=== PATIENT | female | born 1965 | race African-American/Black ===

== ENCOUNTER 2021-09-28 15:32 | Outpatient (REF) | payer MEDICARE, OTHER, SELFPAY ==
[2021-09-28 16:11] LABS: Estimated Average Glucose 88 mg/dL; Hemoglobin A1c % 4.7 %
[2021-09-28 16:27] LABS: Alanine Aminotransferase 32 U/L (0-31); Albumin Level 4.1 g/dL (3.5-5.0); Alkaline Phosphatase 92 U/L (39-117); Anion Gap 11 (12-20); Aspartate Amino Transferase 22 U/L (5-31); Bilirubin Total 0.4 mg/dL (0.0-1.0); Blood Urea Nitrogen 12 mg/dL (9-16); Calcium 9.3 mg/dL (8.4-10.2); Carbon Dioxide 27 mmol/L (22-29); Chloride 110 mmol/L (96-108); Estimated Glomerular Filt Rate > 60; Glucose Random 110 mg/dL (60-115); Potassium 3.7 mmol/L (3.3-5.1); Sodium 144 mmol/L (135-145); Total Protein 7.3 g/dL (6.5-8.0)
[2021-09-28 16:48] LABS: Free T4 (Free Thyroxine) 0.82 ng/dL (0.71-1.85)
[2021-09-28 17:01] LABS: Folate 5.3 ng/mL (> or = 4.0); Vitamin B12 527 pg/mL (200-900)
== END 2021-09-28 15:33 | disposition home or self-care (01) ==
LOC: HO.LAB 15:32
PROVIDERS: Visit Provider Psychiatry & Neurology Psychiatry
DX: F33.41 Major depressive disorder, recurrent, in partial remission (principal)
CPT/HCPCS: 36415; 80053; 82607; 82746; 83036; 84439; 84443

== ENCOUNTER → 2022-07-23 12:55 | Outpatient (BNVA) | payer MEDICARE, OTHER, SELFPAY | PROVIDERS: Visit Provider Psychiatry & Neurology Psychiatry | DX: F43.12 Post-traumatic stress disorder, chronic (principal); F32.4 Major depressive disorder, single episode, in partial remission | CPT/HCPCS: Q3014 ==

== ENCOUNTER → 2022-11-19 14:09 | Outpatient (BNVA) | payer MEDICARE, OTHER, SELFPAY | PROVIDERS: PCP Nurse Practitioner Family; Visit Provider Psychiatry & Neurology Psychiatry | DX: F43.12 Post-traumatic stress disorder, chronic (principal); F32.4 Major depressive disorder, single episode, in partial remission; G43.909 Migraine, unspecified, not intractable, without status migrainosus; G47.33 Obstructive sleep apnea (adult) (pediatric) | CPT/HCPCS: Q3014 ==

== ENCOUNTER → 2023-03-18 14:34 | Outpatient (BNVA) | payer MEDICARE, OTHER, SELFPAY | PROVIDERS: PCP Nurse Practitioner Family; Visit Provider Psychiatry & Neurology Psychiatry | DX: F43.12 Post-traumatic stress disorder, chronic (principal); G47.33 Obstructive sleep apnea (adult) (pediatric) | CPT/HCPCS: Q3014 ==

== ENCOUNTER 2023-06-07 11:50 | Outpatient (AMB) | payer MEDICARE, OTHER, SELFPAY ==
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
== END 2023-06-07 12:27 | disposition home or self-care (01) ==
LOC: HO.HOP 11:50
PROVIDERS: PCP Nurse Practitioner Family; Visit Provider Psychiatry & Neurology Psychiatry
DX: F43.12 Post-traumatic stress disorder, chronic (principal); F32.4 Major depressive disorder, single episode, in partial remission; G47.33 Obstructive sleep apnea (adult) (pediatric); E66.9 Obesity, unspecified
CPT/HCPCS: 90833; 99213

== ENCOUNTER → 2023-06-07 11:50 | Outpatient (BNVA) | payer MEDICARE, OTHER, SELFPAY | PROVIDERS: PCP Nurse Practitioner Family; Visit Provider Psychiatry & Neurology Psychiatry | DX: F43.12 Post-traumatic stress disorder, chronic (principal); F32.4 Major depressive disorder, single episode, in partial remission; G47.33 Obstructive sleep apnea (adult) (pediatric); E66.9 Obesity, unspecified | CPT/HCPCS: 90833; 99212 ==

== ENCOUNTER 2023-09-03 18:06 | Emergency (ER) | payer MEDICARE, OTHER, SELFPAY ==
[2023-09-03 18:34] VITALS: BP 155/89; PULSE 91; RESP 18; TEMP 37.1; O2SAT 96; BMI 49.8
--- NOTE | 2023-09-03 19:00 | ED.URI ---
HPI - URI/Sore Throat General Chief Complaint: Upper Respiratory Symptoms Stated Complaint: Flu like symptoms Time Seen by Provider: 09/03/23 20:08 Source: patient Mode of arrival: ambulatory Limitations: no limitations History of Present Illness HPI Narrative: Patient is a 58-year-old female who presents to the emergency department for evaluation of URI symptoms; chills, sore throat, nonproductive cough, headache, nausea, reports grandson has recently tested positive for RSV. She has been experiencing ongoing nausea for the past 4 months secondary to vertigo, no acute changes in this, alleviated with Zofran and meclizine as prescribed by her primary care provider. Denies fever, headache, neck pain, neck stiffness, dizziness, lightheadedness, vision changes, chest pain, shortness of breath, vomiting, abdominal pain, numbness or tingling of the extremities, weakness. Related Data Home Medications Medication Instructions Recorded Confirmed albuterol sulfate 90 mcg/actuation 0 mcg inhalation 07/23/22 03/18/23 aerosol inhaler Previous Rx's Medication Instructions Recorded lamotrigine 200 mg tablet 200 mg PO DAILY #90 tabs 03/18/23 oxcarbazepine 600 mg tablet 600 mg PO BEDTIME 3 months #90 tabs 03/18/23 lorazepam 1 mg tablet 1 - 2 mg (1 - 2 x 1 mg) PO BEDTIME 08/06/23 PRN insomnia #60 tabs prazosin 1 mg capsule 1 mg PO BID PRN ANXIETY/INSOMNIA 09/02/23 #180 caps Allergies Allergy/AdvReac Type Severity Reaction Status Date / Time acetaminophen [From TYLENOL] Allergy Unknown SEE Unverified 07/14/20 18:21 LINES/FLASHING Review of Systems Review of Systems: Constitutional: Positive fever. Positive chills. No weakness. Positive fatigue. ENT/ Mouth: No Ear Pain, positive Nasal Congestion, positive sore throat, No Rhinorrhea, No Swallowing Difficulty Skin: No rash or itching. Cardiovascular: No chest pain. No palpitations. Respiratory: No shortness of breath. Positive cough. No sputum production. Gastrointestinal: No nausea. No vomiting. No diarrhea. No abdominal pain. Genitourinary: No burning micturition. No urinary frequency. Neurologic: No headache. No dizziness. No syncope. No numbness or tingling in the extremities. Musculoskeletal: No muscle pain. No back pain. No joint pain or stiffness. Yes all other systems are reviewed and are negative PMFSH Past Medical History Attestation statement: The following information was validated with the patient. Source: old records reviewed Medical History ADRIAN (obstructive sleep apnea) Chronic post-traumatic stress disorder (PTSD) Obesity (BMI 30-39.9) Migraine Family History Family History (Updated 07/25/22 @ 09:19 by Surendra Dueñas MD) Other Bipolar disorder Post traumatic stress disorder (PTSD) Physical Exam Vital Signs: Vital Signs: Last Vital Signs Temp 98.7 F 09/03/23 18:34 Pulse 91 09/03/23 18:34 Resp 18 09/03/23 18:34 BP 155/89 H 09/03/23 18:34 Pulse Ox 96 09/03/23 18:34 O2 Del Method Room Air 09/03/23 18:34 BMI result Body Mass Index 49.8 Appearance: Alert.?Oriented to person, place and time. No acute distress.?Normal affect. Eyes: Pupils equal, round and reactive to light.? ENT: TM normal bilaterally. Pharynx normal.?? Neck: Normal inspection.? Neck supple.??No cervical adenopathy CVS: Heart sounds normal. Normal heart rate and rhythm.? Pulses normal.?? Respiratory: No respiratory distress.? Lung sounds clear to auscultation bilaterally?? Abdomen: Soft and non-tender. Normoactive bowel sounds. Skin: Skin warm and dry.? Normal skin color.? ? Extremities: No lower extremity edema.? Neuro: Moves all extremities spontaneously. Sensation intact bilaterally. No motor deficits. Ambulates with normal steady gait. Medical Decision Making Medical Decision Making MDM Narrative: Patient is a 58-year-old female with no reported past medical history, presenting for evaluation of upper respiratory symptoms. COVID-19/influenza/RSV/strep a testing are all negative. At this time history and physical exam not consistent with ACS/PE/pneumonia, no evidence of peritonsillar retropharyngeal abscess. Well-appearing, nontoxic, afebrile, no tachycardia or tachypnea/hypoxia. Speaking clear full sentences, ambulatory with steady gait. Discussed conservative treatment including rest, hydration, Tylenol/ibuprofen as needed for fever and body aches, saline nasal spray, humidifier, jpwk-phu-srtaeyr cold medication. Advised to follow-up with primary care provider as needed, discussed reasons to return back to the emergency department. All questions were answered. Patient discharged home in stable condition. Differential Diagnosis Differential Diagnoses: The differential diagnosis associated with the presentation includes (As noted above) Lab Data MDM Lab Attestation statement: I reviewed the patient's lab results. (As noted above) Labs: Lab Results 09/03/23 09/03/23 Range/Units 19:02 19:12 Urine Color Yellow Urine Appearance Clear Urine pH 6.0 (5.0-9.0) Ur Specific [place] 1.015 (1.005-1.025) Urine Protein Negative (Neg-Trace) mg/dL Urine Glucose (UA) Negative (Negative) mg/dL Urine Ketones Negative (Negative) mg/dL Urine Blood Negative (Negative) Urine Nitrite Negative (Negative) Ur Leukocyte Esterase Negative (Negative) Influenza Type A (PCR) NEGATIVE (Negative) Influenza Type B (PCR) NEGATIVE (Negative) RSV RNA Qual (PCR) NEGATIVE (Negative) SARS-CoV-2 RNA (RT-PCR) NEGATIVE (Negative) S. pyogenes GrpA CLARA Negative (Negative) External Record Review External record reviewed: Prior outpatient labs Prescription Management I considered prescription management with: Antibiotic (Suspect viral etiology) Discharge Plan Discharge Clinical Impression: Upper respiratory infection Patient Disposition: Home, Self-Care Instructions: Upper Respiratory Infection (ED) Additional Instructions: Be sure to rest, stay well hydrated drinking plenty of fluids, eat small frequent meals. Tylenol/ibuprofen can be used as needed for fever/pain. Umto-mvc-zogiwzv cold medications may be helpful as well for symptoms. Saline nasal spray, humidifier may be helpful for nasal congestion. You may return to the emergency department with any new or worsening symptoms or concerns. Follow-up with your primary care provider as needed. Should remain out of school/ work until symptoms have resolved and have been without a fever for 24 hours without the use of Tylenol or ibuprofen. Prescriptions: No Action lorazepam 1 mg tablet 1 - 2 mg PO BEDTIME PRN (Reason: insomnia) Qty: 60 2RF prazosin 1 mg capsule 1 mg PO BID PRN (Reason: ANXIETY/INSOMNIA) Qty: 180 1RF albuterol sulfate 90 mcg/actuation HFA aerosol inhaler 0 mcg inhalation oxcarbazepine 600 mg tablet 600 mg PO BEDTIME 90 Days Qty: 90 1RF lamotrigine 200 mg tablet 200 mg PO DAILY Qty: 90 1RF Referrals: ED Physician,Generic [Physician] -
[2023-09-03 19:23] LABS: Appearance Urine Clear; Color Urine Yellow; Glucose Urine UA Negative (Negative); Leukocyte Esterase Urine Negative (Negative); Nitrite Urine Negative (Negative); Specific Gravity - Urine 1.015 (1.005-1.025); Urine Blood Negative (Negative); Urine Ketones Negative (Negative); Urine Protein Negative (Neg-Trace)
[2023-09-03 19:26] LABS: IDNOW Serial# 08D9AD1C; Strep A Nucleic Acid Negative (Negative)
[2023-09-03 19:44] LABS: Influenza A PCR NEGATIVE (Negative); Influenza B PCR NEGATIVE (Negative); Resp Syncy Virus RNA Qual PCR NEGATIVE (Negative); SARS COV2 PCR INHOUSE NEGATIVE (Negative)
[2023-09-03 20:05] VITALS: BP 118/75; PULSE 90; RESP 18; TEMP 36.9; O2SAT 98
== END 2023-09-03 21:58 | disposition home or self-care (01) ==
PROVIDERS: Emergency Provider Emergency Medicine
DX: J06.9 Acute upper respiratory infection, unspecified (principal); R05.9 Cough, unspecified; J02.9 Acute pharyngitis, unspecified; R51.9 Headache, unspecified; Z20.822 Contact with and (suspected) exposure to COVID-19; Z20.828 Contact with and (suspected) exposure to other viral communicable diseases
CPT/HCPCS: 0241U; 81003; 87651; 99282; 99283

== ENCOUNTER 2023-09-30 16:50 | Outpatient (AMB) | payer MEDICARE, OTHER, SELFPAY ==
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
== END 2023-09-30 16:50 | disposition home or self-care (01) ==
LOC: HO.HOP 16:50
PROVIDERS: Visit Provider Psychiatry & Neurology Psychiatry
DX: F33.41 Major depressive disorder, recurrent, in partial remission (principal); F43.12 Post-traumatic stress disorder, chronic; G47.33 Obstructive sleep apnea (adult) (pediatric); R42 Dizziness and giddiness
CPT/HCPCS: 99214

== ENCOUNTER → 2023-09-30 16:50 | Outpatient (BNVA) | payer MEDICARE, OTHER, SELFPAY | PROVIDERS: Visit Provider Psychiatry & Neurology Psychiatry ==

== ENCOUNTER → 2024-01-30 12:00 | Outpatient (BNVA) | payer MEDICARE, OTHER, SELFPAY | PROVIDERS: Visit Provider Psychiatry & Neurology Psychiatry ==

== ENCOUNTER → 2024-01-31 16:59 | Outpatient (BNVA) | payer MEDICARE, OTHER, SELFPAY | PROVIDERS: Visit Provider Psychiatry & Neurology Psychiatry ==

== ENCOUNTER 2024-04-21 17:22 | Outpatient (AMB) | payer MEDICARE, OTHER, SELFPAY ==
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
== END 2024-04-21 17:22 | disposition home or self-care (01) ==
LOC: HO.HOP 17:22
PROVIDERS: Visit Provider Psychiatry & Neurology Psychiatry
DX: F32.4 Major depressive disorder, single episode, in partial remission (principal); F43.12 Post-traumatic stress disorder, chronic
CPT/HCPCS: 90833; 99213

== ENCOUNTER → 2024-04-21 17:22 | Outpatient (BNVA) | payer MEDICARE, OTHER, SELFPAY | PROVIDERS: Visit Provider Psychiatry & Neurology Psychiatry | DX: F43.12 Post-traumatic stress disorder, chronic (principal); F32.4 Major depressive disorder, single episode, in partial remission ==

== ENCOUNTER 2024-07-28 14:08 | Outpatient (AMB) | payer MEDICARE, OTHER, SELFPAY ==
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
== END 2024-07-28 14:43 | disposition home or self-care (01) ==
LOC: HO.HOP 14:08
PROVIDERS: Visit Provider Psychiatry & Neurology Psychiatry
DX: F43.12 Post-traumatic stress disorder, chronic (principal); F32.4 Major depressive disorder, single episode, in partial remission
CPT/HCPCS: 90833; 99213

== ENCOUNTER → 2024-07-28 14:08 | Outpatient (BNVA) | payer MEDICARE, OTHER, SELFPAY | PROVIDERS: Visit Provider Psychiatry & Neurology Psychiatry | DX: F43.12 Post-traumatic stress disorder, chronic (principal); F32.4 Major depressive disorder, single episode, in partial remission; Z71.89 Other specified counseling | CPT/HCPCS: 99212 ==

== ENCOUNTER 2024-08-24 14:41 | Outpatient (AMB) | payer MEDICARE, OTHER, SELFPAY ==
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
== END 2024-08-24 14:41 | disposition home or self-care (01) ==
LOC: HO.HOP 14:41
PROVIDERS: Visit Provider Psychiatry & Neurology Psychiatry
DX: F32.4 Major depressive disorder, single episode, in partial remission (principal); F43.12 Post-traumatic stress disorder, chronic; G47.33 Obstructive sleep apnea (adult) (pediatric)
CPT/HCPCS: 99214

== ENCOUNTER → 2024-08-24 14:41 | Outpatient (BNVA) | payer MEDICARE, OTHER, SELFPAY | PROVIDERS: Visit Provider Psychiatry & Neurology Psychiatry ==

== ENCOUNTER 2024-11-02 18:20 | Outpatient (AMB) | payer MEDICARE, OTHER, SELFPAY ==
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
== END 2024-11-02 18:23 | disposition home or self-care (01) ==
LOC: HO.HOP 18:20
PROVIDERS: Visit Provider Psychiatry & Neurology Psychiatry
DX: F43.12 Post-traumatic stress disorder, chronic (principal)
CPT/HCPCS: 99212

== ENCOUNTER → 2024-11-02 18:20 | Outpatient (BNVA) | payer MEDICARE, OTHER, SELFPAY | PROVIDERS: Visit Provider Psychiatry & Neurology Psychiatry ==

== ENCOUNTER 2025-01-28 17:24 | Outpatient (AMB) | payer MEDICARE, OTHER, SELFPAY ==
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
--- OUTSIDE RECORDS SUMMARY | 2025-01-28 17:26 | XMS_ITS | Continuity of Care Document ---
Author Organization [facility] ter Address [address] [place] [id number]- Care Team Providers Care Chief Of Police Name Role Phone Chloe ESTRADA, Margareth Primary Care Physician [phone] Encounter [facility] [place] Date(s): 10/28/24 - 01/25/[address] [id number] Discharge Disposition: A-D/C Home Attending Physician: Erick Rock MD Admitting Physician: Erick Rock MD Referring Physician: Erick Rock MD Encounter Type: Disch Recurring OP Allergies, Adverse Reactions, Alerts Substance Criticality Severity Reaction Reaction Severity Status Tylenol 1 vision change Resolv ed Dust 2 Active 1Currently taking Tylenol at home for fever with Covid, no symptoms/tolerating well. 2dust mites Immunizations Given and Recorded Vaccine Date Status Refusal Reason influenza virus vaccine, inactivated 09/16/23 Blayne rded influenza virus vaccine, inactivated 1 09/26/22 Gi jules influenza virus vaccine, inactivated 10/30/21 Blayne rded influenza virus vaccine, inactivated 07/06/20 Blayne rded influenza virus vaccine, inactivated 2 09/10/19 Gi jules influenza virus vaccine, inactivated 3 08/27/18 Gi jules influenza virus vaccine, inactivated 4 07/17/17 Gi jules influenza virus vaccine, inactivated 5 3/20/17 Gi jules influenza virus vaccine, inactivated 6 01/13/16 Gi jules influenza virus vaccine, inactivated 09/11/11 Give n influenza virus vaccine, inactivated 7 11/01/09 Gi jules SARS-CoV-2(COVID-19)mRNA-LNP vac([id number]) 08/02/23 Recorded [id number] bivalent booster vax 10/04/22 Recorded SARS-CoV-2 (COVID-19) mRNA-1273 vaccine 09/08/21 R ecorded SARS-CoV-2 (COVID-19) mRNA-1273 vaccine 12/23/20 R ecorded SARS-CoV-2 (COVID-19) mRNA-1273 vaccine 11/18/20 R ecorded Zostavax (oldterm) 8 04/18/18 Given tetanus/diphtheria/pertussis, acel(Tdap) 9 04/18/18 Given pneumococcal 23-valent vaccine 01/14/17 Given Tet/Diphth/Acel, Pertussis (oldterm) 09/24/08 Give n Influenza Virus Vaccine (oldterm) 10 08/14/08 Give n diphtheria-tetanus toxoids (DT) 11 07/11/06 Given 1Result Comment: [facility] [id number] 2Result Comment: [facility] [id number] 3Admin Note: [facility] 4Result Comment: [facility]#[id number] 5Admin Note: Declined 6Admin Note: Declined 7Admin Note: vis sheet 06/07/09 given 8Admin Note: Declined 9Result Comment: [id number] 10Admin Note: [facility] 04/26/06 MANUFACTURED [employer] 11Admin Note: declined Medications aspirin 81 mg oral delayed release tablet 81 mg, 1, tablet, By Mouth, Daily, # 90 tablet, Refills 3, Tot. Refills 3, Maintenance, 04/10/24 3:05:00 PM EDT, Route to Pharmacy Electronically, [facility]/pharmacy #[id number], Partial fill upon patient requestif the prescription is for a schedule II opioid drug., 159, cm, 03/20/24 15:37:00 EDT, Height, 121.82, kg, 03/12/24 11:07:00 EDT, Dry Weight Start Date: 04/10/24 Status: Ordered Quantity: 90.0 Unit: tablet Repeat number: 4 atorvastatin 40 mg oral tablet 1 tablet, By Mouth, Daily at bedtime, # 90 tablet, 1 Refills, Maintenance, 10/08/24 2:22:00 PM EST,[facility] #[id number], 160, cm, 07/01/24 7:08:00 EDT, Height, 121.2, kg, 06/30/24 7:54:00 EDT, Dry Weight Start Date: 10/08/24 Status: Ordered Quantity: 90.0 Unit: tablet Repeat number: 2 Blood Pressure Monitor Blood Pressure Monitor, See Instructions, # 1 each, Refills 0, Tot. Refills 0, Maintenance, Use to monitor blood pressure DX: Hypertension, 07/21/24 8:30:00 AM EDT, Supply Start Date: 07/21/24 Status: Ordered Quantity: 1.0 Unit: each Repeat number: 1 Indication: Essential (primary) hypertension Cane See Instructions, # 1 each, Maintenance, DX Difficulty ambulating use as directed, 09/27/23 9:56:00 AM EST, Supply Start Date: 09/27/23 Status: Ordered Quantity: 1.0 Unit: each Repeat number: 1 Indication: Unspecified abnormalities of gait and mobility COVID-19 Test Kit COVID-19 Test Kit, See Instructions, # 6 each, Refills 0, Tot. Refills 0, Maintenance, Use as directed, 11/20/23 12:26:00 PM EST, Supply, 159, cm, 11/19/23 10:14:00 EST, Height Start Date: 11/20/23 Status: Ordered Quantity: 6.0 Unit: each Repeat number: 1 Indication: Acute upper respiratory infection, unspecified CPAP Equipment See Instructions, # 1 each, Refills 12, Tot. Refills 12, Maintenance, DX. SLEEP APNEA G47.30 HEAD GEAR TUBING MASK FILTERS WATER CHAMBER LIFTIME USE NIGHTLY IMPROVE SA, 04/22/19 10:31:03 AM EDT, Compound Start Date: 04/22/19 Status: Ordered Quantity: 1.0 Unit: each Repeat number: 13 lamotrigine 100 mg oral tablet 100 mg, 1, tablet, By Mouth, 2 times a day, # 60 tablet, Refills 5, Maintenance, 07/01/24 9:36:00 AM EDT, Partial fill upon patient request if the prescription is for a schedule II opioid drug. Start Date: 07/01/24 Status: Ordered Quantity: 60.0 Unit: tablet Repeat number: 1 OXcarbazepine 300 mg oral tablet 300 mg, 1, tablet, By Mouth, Daily at bedtime, Refills 0, Maintenance, 05/03/22 9:18:00 AM EDT, Partial fill upon patient request if the prescription is for a schedule II opioid drug. Start Date: 05/03/22 Status: Ordered Repeat number: 1 prazosin 1 mg oral capsule Refills 0, Maintenance, 01/01/22 9:04:00 AM EST, Partial fill upon patient request if the prescription is for a schedule II opioid drug. Start Date: 01/01/22 Status: Ordered Repeat number: 1 Ventolin HFA 108 mcg/inh inhalation aerosol with adapter 2 puffs, Inhalation, Every 4 hours, PRN for wheezing, DX. ASTHMA J45.909, # 1 each, 2 Refills, Maintenance, 03/25/24 12:42:00 PM EDT, Aerosol, [id number], 159, cm, 03/20/24 15:37:00 EDT, Height, 121.82, kg, 03/12/24 11:07:00 EDT, Dry Weight Start Date: 03/25/24 Stop Date: 06/23/24 Status: Ordered Quantity: 1.0 Unit: each Repeat number: 3 Indication: Unspecified asthma, uncomplicated Problem List Condition Confirmation Course Effective Dates Status Health St atus Informant Allergic rhinitis Confirmed Active Asthma Confirmed Stable Active Lumbar degenerative disc disease Confirmed Active History of CVA in adulthood Confirmed Active Iron deficiency anemia Confirmed Active Migraine Confirmed Active Anxiety and depression Confirmed Active Severe obesity Confirmed Active Sleep apnea Confirmed Active Tubular adenoma of colon Confirmed 12/25/12 Active Vitamin D deficiency Confirmed Active Social History Social History Type Response Smoking Status Never (less than 100 in lifetime) entered on: 03/20/19 Sex Sex Representation Female (finding) Note * Event Display: Cardiac Rehab Telemetry Report Authored Date: * Event Display: Cardiac Rehab Telemetry Report Authored Date: * Event Display: Cardiac Rehab Telemetry Report Authored Date: Patient Care team information Care Team Personnel Name: Pranay HOLCOMB, Sirisha Rey Position: [facility] RN Member Role: Primary Care Nurse Name: Margareth Corona NP Position: [facility] PCO Associate Professional Member Role: PCP Address: [address] [place] [address] Telecom: Name: Mike Key RN Position: [facility] RN Member Role: Primary Care Nurse Name: Alicia Delong RN Position: [facility] RN Member Role: Primary Care Nurse Care Team Related Persons Name: SONAL SANTA Name: RAMONA JI Name: GEOFFREY SILVER Insurance Providers Guarantor name: ANGEL GARRISON Health Plan Information #: 1 Payer: MEDICARE PART B OUTPT Member Number: [id number] Policy Number: JOHN Group Number: JOHN Health Plan Information #: 2 Payer: [place] [employer] Member Number: [id number] Policy Number: NA Group Number: [id number]
== END 2025-01-28 17:25 | disposition home or self-care (01) ==
LOC: HO.HOP 17:24
PROVIDERS: Visit Provider Psychiatry & Neurology Psychiatry
DX: F43.12 Post-traumatic stress disorder, chronic (principal); F32.4 Major depressive disorder, single episode, in partial remission
CPT/HCPCS: 99214

== ENCOUNTER → 2025-01-28 17:24 | Outpatient (BNVA) | payer MEDICARE, OTHER, SELFPAY | PROVIDERS: Visit Provider Psychiatry & Neurology Psychiatry | DX: F43.12 Post-traumatic stress disorder, chronic (principal); F32.4 Major depressive disorder, single episode, in partial remission | CPT/HCPCS: 99212 ==

== ENCOUNTER 2025-04-26 10:56 | Outpatient (AMB) | payer MEDICARE, OTHER, SELFPAY ==
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
--- OUTSIDE RECORDS SUMMARY | 2025-04-26 11:47 | XMS_ITS | Patient Health Record ---
Author Organization [facility] Tamir jona [place] Address [address] [facility] [place] [address] Care Team Providers Care Lead Programmer Name Role Phone Mina GONZALES, Orion Primary Care Provider Chan Brock Unavailable [phone] Allergies Allergen (clinical drug ingredient) Drug/Non Drug Allergy documented on EMR Reaction Allergy Type Onset Date Status Information temporarily unavailable Chocolate Unknown Drug Allergy Active Information temporarily unavailable Emprin Unknown Drug Allergy Inactive Information temporarily unavailable Tylenol Unknown Drug Allergy Active Reason For Referral No Information Medications Medication SIG (Take, Route, Frequency, Duration) Notes Start Date End Date Status Physical Therapy . . . 2-3x/week; Durat ion: 3-4 weeks 08/13/2018 Active Metoprolol Succinate Not-Taking lamoTRIgine 200 MG 1 tablet Orally Twice a day Active LORazepam 1 MG 1 tablet Orally Twice a day Active Effexor Not-Taking Ibuprofen prn Active Valtrex PRN Not-Taking Social History Tobacco Use: Social History Observation Description Date Details (start date - stop date) Never Smoker NA - NA Tobacco Use/Smoking Question Answer Notes Are you a: nonsmoker Additional Findings: Tobacco Non-User Current no n-smoker Alcohol Screen Question Answer Notes Did you have a drink containing alcohol in the p ast year? No Points 0 Interpretation Negative Tobacco use other than smoking: Question Answer Notes Are you an other tobacco user? No Plan Of Treatment Pending Test Test Name Order Date X ray : Foot, left 3V 09/02/2012 X ray : Foot, left 3V 03/12/2018 X ray : Foot, right 3V 03/12/2018 X ray : Foot, right 3V 09/02/2012 Insurance Providers Payer Name Payer Address Payer Phone Subscriber Number Group Number Insured Name Patient Relationship to Insured Coverage Start Date Coverage End Date Medicare [employer] [address] [place] [address] [id number] Sarah John Self - patient is the insured 5 [facility] [address] [place] [id number] Sarah John Self - patient is the insured Medical (General) History Medical History History ICD Code psychiatric disorder neuropathy headaches/migraines gall bladder problems depression chicken pox cataracts back, hip, knee pain asthma Anxiety disorder sciatica High blood pressure Surgical History Surgery Date(Month/Year) section 09/29/1999 cholecystectomy 1999 elbow surgery 2009
== END 2025-04-26 11:15 | disposition home or self-care (01) ==
PROVIDERS: Visit Provider Psychiatry & Neurology Psychiatry
DX: F43.12 Post-traumatic stress disorder, chronic (principal); F32.4 Major depressive disorder, single episode, in partial remission
CPT/HCPCS: 99214

== ENCOUNTER → 2025-04-26 10:56 | Outpatient (BNVA) | payer MEDICARE, OTHER, SELFPAY | PROVIDERS: Visit Provider Psychiatry & Neurology Psychiatry | DX: F43.12 Post-traumatic stress disorder, chronic (principal); F32.4 Major depressive disorder, single episode, in partial remission | CPT/HCPCS: 99212 ==

== ENCOUNTER 2025-07-05 11:05 | Outpatient (AMB) | payer MEDICARE, OTHER, SELFPAY ==
--- OUTSIDE RECORDS SUMMARY | 2025-07-02 23:59 | XMS_ITS | Continuity of Care Document ---
Author Organization [facility] Adult Address [address] [place] [address]- Care Team Providers Care Claims Assistant Name Role Phone Margareth Corona NP Primary Care Physician [phone] Encounter [facility] Date(s): 06/02/25 - 07/02/25 [facility] [address] [place] [id number] Encounter Type: Triage Allergies, Adverse Reactions, Alerts Substance Criticality Severity [...] Gi jules influenza virus vaccine, inactivated 5 01/14/17 Gi jules influenza virus vaccine, inactivated 6 01/13/16 Gi jules influenza virus vaccine, inactivated 09/11/11 Give n influenza virus vaccine, inactivated 7 11/01/09 Gi jules SARS-CoV-2(COVID-19)mRNA-LNP vac([id number]) 08/02/23 Recorded [id number] bivalent booster vax 10/04/22 Recorded SARS-CoV-2 (COVID-19) mRNA-1273 vaccine 09/08/21 R ecorded SARS-CoV-2 (COVID-19) mRNA-1273 vaccine 12/23/20 R ecorded SARS-CoV-2 (COVID-19) mRNA-1273 vaccine 11/18/20 R ecorded Zostavax (oldterm) 8 04/18/18 Given tetanus/diphtheria/pertussis, acel(Tdap) 9 04/18/18 Given pneumococcal 23-valent vaccine 01/14/17 Given Tet/Diphth/Acel, Pertussis (oldterm) 09/24/08 Give n Influenza Virus Vaccine (oldterm) 10 08/14/08 Give n diphtheria-tetanus toxoids (DT) 11 07/11/06 Given 1Result Comment: [facility] [id number] 2Result Comment: [facility] 43253-299-62 3Admin Note: [facility] 4Result Comment: [facility]#35692-243-04 5Admin Note: Declined 6Admin Note: Declined 7Admin Note: vis sheet 06/07/09 given 8Admin Note: Declined 9Result Comment: [id number] 10Admin Note: VIM 04/26/06 MANUFACTURED SANOFI PA[employer]UR 11Admin Note: declined Medications aspirin 81 mg oral delayed release tablet 81 mg, 1, tablet, By Mouth, Daily, # 90 tablet, Refills 3, Tot. Refills 3, Maintenance, 04/10/24 3:05:00 PM EDT, Route to Pharmacy Electronically, [facility]/pharmacy #[id number], Partial fill upon patient requestif the prescription is for a schedule II opioid drug., 159, cm, 03/20/24 15:37:00 EDT, Height, 121.82, kg, 03/12/24 11:07:00 EDT, Dry Weight Start Date: 04/10/24 Status: Ordered Medication Dispense Status: Completed Quantity: 90.0 Unit: tablet Total Allowed Fills: 4 Fills Dispensed: 0 atorvastatin 40 mg oral tablet 1 tablet, By Mouth, Daily at bedtime, # 90 tablet, 1 Refills, Maintenance, 03/18/25 5:36:00 AM EDT, [id number], 160, cm, 03/11/25 13:14:00 EDT, Height, 121.2, kg, 06/30/24 7:54:00 EDT, Dry Weight Start Date: 03/18/25 Status: Ordered Medication Dispense Status: Completed Quantity: 90.0 Unit: tablet Total Allowed Fills: 1 Fills Dispensed: 0 Bilateral compression stockings 15-20mmHg Bilateral compression stockings 15-20mmHg, See Instructions, # 1 each, Refills 1, Tot. Refills 1, Maintenance, Apply Open-toe Bilateral compression stockings 15-20 mmHg to both legs in the morning and remove at bedtime Knee High, 05/18/25 4:02:00 PM EDT, Supply Start Date: 05/18/25 Status: Ordered Medication Dispense Status: Completed Quantity: 1.0 Unit: each Total Allowed Fills: 2 Fills Dispensed: 0 Indications: Venous insufficiency (chronic) (peripheral); Blood Pressure Monitor Blood Pressure Monitor, See Instructions, # 1 each, Refills 0, Tot. Refills 0, Maintenance, Use to monitor blood pressure DX: Hypertension, 07/21/24 8:30:00 AM EDT, Supply Start Date: 07/21/24 Status: Ordered Medication Dispense Status: Completed Quantity: 1.0 Unit: each Total Allowed Fills: 1 Fills Dispensed: 0 Indications: Essential (primary) hypertension; Cane See Instructions, # 1 each, Maintenance, DX Difficulty ambulating use as directed, 09/27/23 9:56:00 AM EST, Supply Start Date: 09/27/23 Status: Ordered Medication Dispense Status: Completed Quantity: 1.0 Unit: each Total Allowed Fills: 1 Fills Dispensed: 0 Indications: Unspecified abnormalities of gait and mobility; cetirizine 10 mg oral tablet 1 tablet = 10 mg, TAKE 1 DAILY IN THE MORNING FOR ITCHING. MAY REPEAT BEFORE BED IF NECESSARY Start Date: 02/19/25 Status: Ordered Medication Dispense Status: Completed Total Allowed Fills: 1 Fills Dispensed: 0 COVID-19 Test Kit COVID-19 Test Kit, See Instructions, # 6 each, Refills 0, Tot. Refills 0, Maintenance, Use as directed, 11/20/23 12:26:00 PM EST, Supply, 159, cm, 11/19/23 10:14:00 EST, Height Start Date: 11/20/23 Status: Ordered Medication Dispense Status: Completed Quantity: 6.0 Unit: each Total Allowed Fills: 1 Fills Dispensed: 0 Indications: Acute upper respiratory infection, unspecified; CPAP Equipment See Instructions, # 1 each, Refills 12, Tot. Refills 12, Maintenance, DX. SLEEP APNEA G47.30 HEAD GEAR TUBING MASK FILTERS WATER CHAMBER LIFTIME USE NIGHTLY IMPROVE SA, 04/22/19 10:31:03 AM EDT, Compound Start Date: 04/22/19 Status: Ordered Medication Dispense Status: Completed Quantity: 1.0 Unit: each Total Allowed Fills: 13 Fills Dispensed: 0 lamotrigine 100 mg oral tablet 100 mg, 1, tablet, By Mouth, 2 times a day, # 60 tablet, Refills 5, Maintenance, 07/01/24 9:36:00 AM EDT, Partial fill upon patient request if the prescription is for a schedule II opioid drug. Start Date: 07/01/24 Status: Ordered Medication Dispense Status: Completed Quantity: 60.0 Unit: tablet Total Allowed Fills: 1 Fills Dispensed: 0 LORazepam 1 mg oral tablet 1 tablet = 1 mg, 1-2 as needed, 0 Refills, Maintenance, 01/26/25 9:04:00 AM EDT, Partial fill upon patient request if the prescription is for a schedule II opioid drug. Start Date: 01/26/25 Status: Ordered Medication Dispense Status: Completed Total Allowed Fills: 1 Fills Dispensed: 0 OXcarbazepine 150 mg oral tablet 150 mg, 1, tablet, By Mouth, 2 times a day, # 60 tablet, Refills 0, Maintenance, 06/06/25 1:26:00 PMEDT, Partial fill upon patient request if the prescription is for a schedule II opioid drug. Start Date: 06/06/25 Status: Ordered Medication Dispense Status: Completed Quantity: 60.0 Unit: tablet Total Allowed Fills: 1 Fills Dispensed: 0 OXcarbazepine 300 mg oral tablet 300 mg, 1, tablet, By Mouth, Daily at bedtime, Refills 0, Maintenance, 05/03/22 9:18:00 AM EDT, Partial fill upon patient request if the prescription is for a schedule II opioid drug. Start Date: 05/03/22 Status: Ordered Medication Dispense Status: Completed Total Allowed Fills: 1 Fills Dispensed: 0 prazosin 1 mg oral capsule 1 mg, 1, capsule, 2 times a day, PRN, Refills 0, Maintenance, 01/01/22 9:04:00 AM EST, Partial fill upon patient request if the prescription is for a schedule II opioid drug. Start Date: 01/01/22 Status: Ordered Medication Dispense Status: Completed Total Allowed Fills: 1 Fills Dispensed: 0 Suprep Bowel Prep Kit oral liquid 177 mL, By Mouth, Once, Take the first 6 oz bottle the evening before colonoscopy, and the second 6oz bottle the morning of colonoscopy., # 354 mL, 0 Refills, Soft Stop, 03/11/25 1:38:00 PM EDT, [id number], Partial fill upon patient request if the prescription is for a schedule II opioid drug., 177 mL By Mouth Once,Instr:Take the first 6 oz bottle the evening before colonoscopy, and the second 6 oz bottle the morning of colonoscopy., 160, cm, 03/11/25 13:14:00 EDT, Height, 121.2, kg, 06/30/24 7:54:00 EDT, Dry Weight Start Date: 03/11/25 Status: Ordered Medication Dispense Status: Completed Quantity: 354.0 Unit: mL Total Allowed Fills: 1 Fills Dispensed: 0 Indications: Anemia, unspecified; Family history of malignant neoplasm of digestive organs; Encounter for screening for malignant neoplasm of colon; Vitamin D3 1000 intl units oral tablet 1 tablet = 25 mcg, By Mouth, Daily, # 90 tablet, 3 Refills, Maintenance, 06/09/25 4:04:00 PM EDT, Tablet, [id number], Partial fill upon patient request if the prescription is for a schedule IIopioid drug., 160, cm, 06/09/25 15:42:00 EDT, Height, 123.7, kg, 05/18/25 15:54:00 EDT, Dry Weight Start Date: 06/09/25 Stop Date: 06/04/26 Status: Ordered Medication Dispense Status: Completed Quantity: 90.0 Unit: tablet Total Allowed Fills: 4 Fills Dispensed: 0 Problem List Condition Confirmation Course Effective Dates Status Health St atus Informant Abscess Confirmed 06/06/25 Active Allergic rhinitis Confirmed Active Anemia Confirmed Active Asthma Confirmed Stable Active Lumbar degenerative disc disease Confirmed Active Family history of colon cancer Confirmed Active Hematochezia Confirmed Active History of CVA in adulthood Confirmed Active Iron deficiency anemia Confirmed Active Migraine Confirmed Active Anxiety and depression Confirmed Active Encounter for screening colonoscopy Confirmed Active Severe obesity Confirmed Active Sleep apnea Confirmed Active Tubular adenoma of colon Confirmed 12/25/12 Active Verruca vulgaris Confirmed 06/06/25 Active Verruca vulgaris Confirmed 06/06/25 Active Vitamin D deficiency Confirmed Active Social History Social History Type Response Smoking Status Never (less than 100 in lifetime) entered on: 05/18/25 Sexual Orientation Self described orien tation: ; Straight or heterosexual Gender Identity Gender identity: Sex Sex Representation Female (finding) Patient Care team information Care Team Personnel Name: Sirisha Pires RN Position: S RN Member Role: Primary Care Nurse Name: Margareth Corona NP Position: [facility] Associate Professional Member Role: PCP Address: [address] [place] [address] Telecom: Name: Mike Key RN Position: S RN Member Role: Primary Care Nurse Name: Alicia Delong RN Position: S RN Member Role: Primary Care Nurse Care Team Related Persons Name: SONAL SANTA Name: RAMONA JI Name: GEOFFREY SILVER Insurance Providers Guarantor name: ANGEL JI Health Plan Information #: 1 Payer: MEDICARE B Payer Identifier: NA Member Number: [id number] Group Number: NA Subscriber Identifier: NA Relationship to Subscriber: self Coverage Type: NA Coverage Verification Date: NA Telecom: NA Address: NA Health Plan Information #: 2 Payer: I10 MEDICARE SUPPL [id number] Payer Identifier: NA Member Number: [id number] Group Number: [id number] Subscriber Identifier: NA Relationship to Subscriber: self Coverage Type: NA Coverage Verification Date: NA Telecom: NA Address:
--- OUTSIDE RECORDS SUMMARY | 2025-07-03 23:59 | XMS_ITS | Continuity of Care Document ---
Author Organization [facility] Address [address] [place] [address]- Care Team Providers Care Reclamation Kettle Tender Name Role Phone Margareth Corona NP Primary Care Physician [phone] Encounter [facility] Date(s): 06/03/25 - 07/03/25 [facility] [address] [place] [address]- Attending Physician: Tonie Willett Referring Physician: Maragreth Corona NP Encounter Type: Pre Office Visit Allergies, Adverse Reactions, Alerts Substance Criticality Severity [...] vaccine, inactivated 7 11/01/09 Gi jules SARS-CoV-2(COVID-19)mRNA-LNP vac([id number]) 08/02/23 Recorded [id number] bivalent booster vax 10/04/22 Recorded SARS-CoV-2 (COVID-19) mRNA-1273 vaccine 09/08/21 R ecorded SARS-CoV-2 (COVID-19) mRNA-1273 vaccine 12/23/20 R ecorded SARS-CoV-2 (COVID-19) mRNA-1273 vaccine 11/18/20 R ecorded Zostavax (oldterm) 8 04/18/18 Given tetanus/diphtheria/pertussis, acel(Tdap) 9 04/18/18 Given pneumococcal 23-valent vaccine 01/14/17 Given Tet/Diphth/Acel, Pertussis (oldterm) 09/24/08 Give n Influenza Virus Vaccine (oldterm) 10 08/14/08 Give n diphtheria-tetanus toxoids (DT) 11 07/11/06 Given 1Result Comment: [facility] [id number] 2Result Comment: [facility] [id number] 3Admin Note: cox monett 4Result Comment: [facility]#[id number] 5Admin Note: Declined 6Admin Note: Declined 7Admin Note: vis sheet 06/07/09 given 8Admin Note: Declined 9Result Comment: [id number] 10Admin Note: VIM 04/26/06 MANUFACTURED SANOFI PASTEUR 11Admin Note: declined Medications aspirin 81 mg oral delayed release tablet 81 mg, 1, tablet, By Mouth, Daily, # 90 tablet, Refills 3, Tot. Refills 3, Maintenance, 04/10/24 3:05:00 PM EDT, Route to Pharmacy Electronically, [facility]/pharmacy #[id number], Partial fill upon patient requestif the prescription [...] 1 Refills, Maintenance, 03/18/25 5:36:00 AM EDT, [id number], 160, cm, 03/11/25 13:14:00 EDT, Height, 121.2, [...] Care Nurse Name: Margareth Corona NP Position: [facility] Associate Professional Member Role: PCP Address: [address] [place] [address] Telecom: Name: Mike Key RN Position: S RN Member Role: Primary Care Nurse Name: Alicia Delong RN Position: S RN Member Role: Primary Care Nurse Care Team Related Persons Name: SONAL SANTA Name: RAMONA JI Name: GEOFFREY SILVER Insurance Providers Guarantor name: ANGEL GARRISON Health Plan Information #: 1 Payer: MEDICARE B Payer Identifier: NA Member Number: [id number] Group Number: NA Subscriber Identifier: [id number] Relationship to Subscriber: self Coverage Type: NA Coverage Verification Date: NA Telecom: NA Address: NA Health Plan Information #: 2 Payer: I10 MEDICARE SUPPL 2ND Payer Identifier: NA Member Number: [id number] Group Number: [id number] Subscriber Identifier: [id number] Relationship to Subscriber: self Coverage Type: NA Coverage Verification Date: NA Telecom: NA Address:
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
--- OUTSIDE RECORDS SUMMARY | 2025-07-05 13:33 | XMS_ITS | Patient Health Record ---
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 Name Role Phone Mina GONZALES, Orion Primary Care Provider Chan Brock Unavailable [phone] Allergies Allergen (clinical drug ingredient) Drug/Non Drug [...] Medicare [employer] [address] [place] [address] [id number] Sarah John Self - patient is the insured 5 GE [address] [address] [place] [address] [phone] [id number] Sarah John Self - patient is the insured Medical (General) History Medical History History ICD Code psychiatric disorder neuropathy headaches/migraines gall bladder problems depression chicken pox cataracts back, hip, knee pain asthma Anxiety disorder sciatica High blood pressure Surgical History Surgery Date(Month/Year) section 09/29/1999 cholecystectomy 2000 elbow surgery 2009
== END 2025-07-05 12:03 | disposition home or self-care (01) ==
LOC: HO.HOP 11:05
PROVIDERS: Visit Provider Psychiatry & Neurology Psychiatry
DX: F43.12 Post-traumatic stress disorder, chronic (principal)
CPT/HCPCS: 90833; 99213

== ENCOUNTER → 2025-07-05 11:05 | Outpatient (BNVA) | payer MEDICARE, OTHER, SELFPAY | PROVIDERS: Visit Provider Psychiatry & Neurology Psychiatry | DX: F43.12 Post-traumatic stress disorder, chronic (principal) | CPT/HCPCS: 99212 ==